=== PATIENT | male | born 1965 | race Hispanic/Latino ===

== ENCOUNTER 2019-11-30 22:20 | Emergency (ER) | payer BC, OTHER ==
[2019-11-30] MEDS ORDERED: Morphine 4 MG/ML VIAL ONE (22:36)
[2019-11-30] MEDS ORDERED: Ketorolac Tromethamine 30 MG/ML VIAL ONE (22:36)
--- NOTE | 2019-11-30 22:52 | RAD ---
LEFT ANKLE 3 VIEWS: HISTORY: Injury, left ankle pain FINDINGS: The ankle mortise is maintained. No acute fracture or dislocation is identified involving the bones o f the ankle. There is a fracture involving the distal shaft of the third metatarsal..
--- NOTE | 2019-11-30 22:53 | RAD ---
XR Foot Lt 3 View STANDARD HISTORY: Injury, left foot pain FINDINGS: There is an oblique fracture involving the neck and distal shaft of the third metatarsal without sign ificant displacement
--- NOTE | 2019-11-30 23:12 | CT ---
CT Lower Ext Lt WO Con HISTORY: Trauma, left foot pain COMPARISON: None. FINDINGS: There is a nondisplaced oblique fracture involving the neck and distal shaft of the third metatarsal. Soft tissue swelling is seen in the lateral aspect of the foot.
[2019-11-30] MEDS ORDERED: Adacel (T-DAP) 0.5 ML SYRINGE ONE (23:34)
== END 2019-11-30 23:54 | disposition home or self-care (01) ==
LOC: ERS 22:20
DX: S92.335A Nondisplaced fracture of third metatarsal bone, left foot, initial encounter for closed fracture (principal); E11.9 Type 2 diabetes mellitus without complications; Z79.84 Long term (current) use of oral hypoglycemic drugs; X58.XXXA Exposure to other specified factors, initial encounter
CPT/HCPCS: 90471; 90715; 96374; 96375; J1885; J2270